=== PATIENT | female | born 1970 | race Caucasian/White ===

== ENCOUNTER 2019-03-18 09:14 | Day surgery (SDC) | payer OTHER ==
[~2019-03-18 09:14] MED LIST: CEFAZOLIN 1 GM/50 ML (PMX) 50 ML IVPB; SOD CHLORIDE 0.9% 1,000 ML IV
[2019-03-18 10:44] LABS: ADD MAN DIFF? NO
[2019-03-18 10:50] LABS: WHITE BLOOD COUNT 5.7 10^3/ul (4.8-10.8)
[2019-03-18 10:50] LABS: BASOPHILS % 0.3 % (0.0-2.0); EOSINOPHILS % 0.7 % (0.0-7.0); HEMATOCRIT 37.9 % (37.0-47.0); HEMOGLOBIN 12.3 g/dl (12.0-16.0); LYMPHOCYTES # 1.7 10^3/ul (0.8-2.9); LYMPHOCYTES % 28.9 % (15.0-51.0); MEAN CORPUSCULAR HEMOGLOBIN 31.5 pg (29.0-33.0); MEAN CORPUSCULAR HGB CONC 32.5 g/dl (32.0-37.0); MEAN CORPUSCULAR VOLUME 96.9 fl (82.0-101.0); MEAN PLATELET VOLUME 10.2 fl (7.4-10.4); MONOCYTE # 0.5 10^3/ul (0.3-0.9); MONOCYTES % 9.2 % (0.0-11.0); NEUTROPHIL # 3.5 10^3/ul (1.6-7.5); NEUTROPHILS % 60.4 % (39.0-77.0); PLATELET COUNT 238 10^3/UL (140-415); RED BLOOD COUNT 3.91 10^6/ul (4.20-5.40); RED CELL DISTRIBUTION WIDTH 12.4 % (11.5-14.5)
[2019-03-18 11:08] LABS: ALANINE AMINOTRANSFERASE 21 IU/L (13-69); ALBUMIN 4.2 g/dl (3.3-4.9); ALBUMIN/GLOBULIN RATIO 1.35; ALKALINE PHOSPHATASE 61 IU/L (42-121); ANION GAP 6 (5-13); ASPARTATE AMINO TRANSFERASE 22 IU/L (15-46); BILIRUBIN,INDIRECT 0.3 mg/dl (0-1.1); BILIRUBIN,TOTAL 0.3 mg/dl (0.2-1.3); BLOOD UREA NITROGEN 17 mg/dl (7-20); CALCIUM 9.4 mg/dl (8.4-10.2); CARBON DIOXIDE 28 mmol/L (21-31); CHLORIDE 108 mmol/L (97-110); CREATININE 0.82 mg/dl (0.44-1.00); Estimated GFR > 60 mL/min (>60); GLUCOSE 101 mg/dl (70-220); POTASSIUM 4.4 mmol/L (3.5-5.1); SODIUM 142 mmol/L (135-144); TOTAL PROTEIN 7.3 g/dl (6.1-8.1)
[2019-03-18 11:10] LABS: INR 0.89; PROTIME 12.2 Sec (11.9-14.9)
[2019-03-18 11:11] LABS: PARTIAL THROMBOPLASTIN TIME 28.5 Sec (23.0-35.0)
[2019-03-18] MEDS ORDERED: ROCURONIUM 50 MG INJ (14:56)
[2019-03-18] MEDS ORDERED: PROPOFOL 20 ML (14:56)
[2019-03-18] MEDS ORDERED: LIDOCAINE 100 MG SYRINGE (14:56)
[2019-03-18] MEDS ORDERED: LIDOCAINE 2% (MDV) 20 ML INJ (15:04)
[2019-03-18] MEDS ORDERED: BUPIVACAINE 0.5% (SDV) 30 ML INJ (15:04)
[2019-03-18] MEDS ORDERED: MIDAZOLAM 1 MG/ML 2 ML INJ (15:09)
[2019-03-18] MEDS ORDERED: FENTAnyl 50 MCG/ML VIAL (15:09)
[2019-03-18] MEDS ORDERED: KETOROLAC 30 MG INJ (15:10)
[2019-03-18] MEDS ORDERED: ONDANSETRON 4 MG INJ (15:10)
[2019-03-18] MEDS ORDERED: CEFAZOLIN 1 GM INJ (15:33)
[2019-03-18] MEDS: BUPIVACAINE 0.25% (MPF) 30 ML INJ (15:46)
[2019-03-18] MEDS ORDERED: SUGAMMADEX SODIUM 200 MG/2 ML VIAL IV (15:52)
[2019-03-18] MEDS ORDERED: HYDROCODONE/APAP (5/325) TAB PO (16:00)
== END 2019-03-18 18:40 | disposition home or self-care (01) ==
LOC: SDS 09:14
DX: D17.1 Benign lipomatous neoplasm of skin and subcutaneous tissue of trunk (principal); E66.9 Obesity, unspecified; D64.9 Anemia, unspecified; F32.9 Major depressive disorder, single episode, unspecified
CPT/HCPCS: 14001; 80053; 85025; 85610; 85730; 88307